=== PATIENT | female | born 1960 | race Caucasian/White ===

== ENCOUNTER 2019-04-08 15:36 | Outpatient (CLI) | payer BC ==
--- NOTE | 2019-04-21 15:47 | MMO ---
Bilateral MAMMO Bilat Screen [facility]. CLINICAL HISTORY: Patient is 58 years old and is seen for screening. The patient has the following family history of breast cancer: paternal grandmother and cousin female. The patient has no personal history of cancer. VIEWS: The views performed were: bilateral craniocaudal with tomosynthesis and bilateral mediolateral oblique with tomosynthesis. FILMS COMPARED: The present examination has been compared to prior imaging studies performed at [facility] on 11/19/2014, 01/24/2016 and 10/29/2017. This study has been interpreted with the assistance of computer-aided detection. MAMMOGRAM FINDINGS: There are scattered fibroglandular densities. There are no suspicious masses, suspicious calcifications, or new areas of architectural distortion. IMPRESSION: THERE IS NO MAMMOGRAPHIC EVIDENCE OF MALIGNANCY. A ROUTINE FOLLOW-UP MAMMOGRAM IN 1 YEAR IS RECOMMENDED. THE RESULTS OF THIS EXAM WERE SENT TO THE PATIENT. ACR BI-RADS Category 1 - Negative MAMMOGRAPHY NOTE: 1. A negative mammogram report should not delay a biopsy if a dominant of clinically suspicious mass is present. 2. Approximately 10% to 15% of breast cancers are not detected by mammography. 3. Adenosis and dense breasts may obscure an underlying neoplasm. Reported by: SANDY RAYA MD Electonically Signed: [id number]
== END 2019-04-08 15:37 | disposition home or self-care (01) ==
LOC: BICMAMMO 15:36
PROVIDERS: ATTEND Physician Assistant
DX: Z12.31 Encounter for screening mammogram for malignant neoplasm of breast (principal); Z80.3 Family history of malignant neoplasm of breast
CPT/HCPCS: 77063; 77067

== ENCOUNTER 2020-03-27 14:00 | Emergency (ER) | payer BC ==
[~2020-03-27 14:00] MED LIST: Iopamidol-370 76% 500 ML 1 ML ONE
[2020-03-27] MEDS ORDERED: Ketorolac Tromethamine 30 MG/ML VIAL ONE (14:19)
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
[2020-03-27] MEDS ORDERED: Acetaminophen 500 MG TAB ONE ×2 (15:08→15:10)
[2020-03-27] MEDS ORDERED: Morphine 4 MG/ML VIAL ONE (15:40)
[2020-03-27] MEDS ORDERED: Ondansetron PF 4 MG/2 ML Vial ONE ×2 (15:41→17:31)
[2020-03-27 16:02] LABS: #Basophils 0.1 thou/uL (0.0-0.2); #Eosinphils 0.3 thou/uL (0.0-0.7); #Lymphocytes 3.2 thou/uL (1.20-3.40); #Neutrophils 6.4 thou/uL (1.40-6.50); %Basophils 0.8 % (0.0-1.0); %Eosinophils 2.4 % (0.0-10.0); %Lymphocytes 29.6 % (21.0-51.0); %Monocytes 8.9 % (0.0-10.0); %Neutrophils 58.3 % (42.0-75.0); Mean Corpuscular HGB CONC 32.7 g/dL (32.0-36.0); Mean Corpuscular Hemoglobin 31.9 pg (27.0-31.0); Mean Corpuscular Volume 97.5 fL (78.0-98.0); Mean Platelet Volume 7.6 fL (7.4-10.4); Platelet Count 322 thou/uL (130-400); RBC Distribution Width 12.7 % (11.5-14.5); Red Blood Cell (RBC) Count 4.08 mill/uL (4.20-5.40); White Blood Cell (WBC) Count 10.9 thou/uL (4.8-10.8)
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
[2020-03-27 16:21] LABS: ALT (SGPT) 19 U/L (8-55); AST (SGOT) 21 U/L (5-34); Albumin 3.9 g/dL (3.5-5.0); Alkaline Phosphatase 73 U/L (40-110); Anion Gap 15 mmol/L (10-20); BUN (Urea Nitrogen) 9 mg/dL (9.8-20.1); Bilirubin, Total 0.3 mg/dL (0.2-1.2); Calc. Creatinine Clearance 0 mL/min (70-130); Calcium 9.1 mg/dL (7.8-10.44); Carbon Dioxide 24 mmol/L (22-29); Chloride 104 mmol/L (98-107); Globulin 3.3 g/dL (2.4-3.5); Glucose 94 mg/dL (70-105); Potassium 4.2 mmol/L (3.5-5.1); Protein, Total 7.2 g/dL (6.0-8.3); Sodium 139 mmol/L (136-145)
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
[2020-03-27] MEDS ORDERED: Fentanyl 100 MCG/2 ML VIAL ONE (17:31)
== END 2020-03-27 18:43 | disposition home or self-care (01) ==
LOC: ERS 14:00
DX: S20.211A Contusion of right front wall of thorax, initial encounter (principal); I10 Essential (primary) hypertension; F17.210 Nicotine dependence, cigarettes, uncomplicated; Z79.899 Other long term (current) drug therapy; V49.9XXA Car occupant (driver) (passenger) injured in unspecified traffic accident, initial encounter
CPT/HCPCS: 70450; 71046; 71260; 72125; 74177; 80053; 85025; 93005; 94760; 96372; 96374; 96375; 96376; J1885; J2270; J2405; J3010; Q9967

== ENCOUNTER 2020-08-02 11:22 | Outpatient (CLI) | payer BC | END 2020-08-02 11:23 | disposition home or self-care (01) | LOC: BICMAMMO 11:22 | PROVIDERS: ATTEND Physician Assistant | DX: Z12.31 Encounter for screening mammogram for malignant neoplasm of breast (principal); Z80.3 Family history of malignant neoplasm of breast | CPT/HCPCS: 77063; 77067 ==

== ENCOUNTER 2021-05-24 15:00 | Inpatient (IN) | payer BC ==
[2021-05-24 16:57] LABS: #Basophils 0.1 thou/uL (0.0-0.2); #Eosinphils 0.3 thou/uL (0.0-0.7); #Monocytes 0.9 thou/uL (0.11-0.59); %Basophils 0.7 % (0.0-1.0); %Eosinophils 3.2 % (0.0-10.0); %Neutrophils 68.1 % (42.0-75.0); Mean Corpuscular HGB CONC 31.7 g/dL (32.0-36.0); Mean Corpuscular Hemoglobin 33.2 pg (27.0-31.0); Mean Platelet Volume 6.9 fL (7.4-10.4); Platelet Count 334 thou/uL (130-400); RBC Distribution Width 12.3 % (11.5-14.5); Red Blood Cell (RBC) Count 3.93 mill/uL (4.20-5.40); White Blood Cell (WBC) Count 10.3 thou/uL (4.8-10.8)
[2021-05-24 17:16] LABS: Calcium 9.7 mg/dL (7.8-10.44); Chloride 105 mmol/L (98-107); Potassium 4.3 mmol/L (3.5-5.1); Sodium 140 mmol/L (136-145)
[2021-05-24 17:17] LABS: Globulin 3.1 g/dL (2.4-3.5); Glucose 118 mg/dL (70-105); Protein, Total 7.1 g/dL (6.0-8.3)
[2021-05-24 17:18] LABS: Anion Gap 15 mmol/L (10-20); Carbon Dioxide 24 mmol/L (22-29)
[2021-05-24 17:19] LABS: Bilirubin, Total 0.3 mg/dL (0.2-1.2)
[2021-05-24 17:20] LABS: Alkaline Phosphatase 92 U/L (40-110); Calc. Creatinine Clearance 0 mL/min (70-130)
[2021-05-24 17:21] LABS: BUN (Urea Nitrogen) 15 mg/dL (9.8-20.1)
[2021-05-24 17:22] LABS: AST (SGOT) 20 U/L (5-34)
[2021-05-24 17:23] LABS: ALT (SGPT) 20 U/L (8-55)
[2021-05-24] MEDS ORDERED: Nitroglycerin 2% Ointment 1 INCH/1 GM Packet ONE (17:38)
[2021-05-24] MEDS ORDERED: Senokot S 8.6-50 MG TAB PO PRN (19:33)
[2021-05-24] MEDS ORDERED: Ondansetron PF 4 MG/2 ML Vial IVP PRN (19:33)
[2021-05-24] MEDS ORDERED: Bisacodyl 5 MG TAB PO PRN (19:33)
[2021-05-24] MEDS ORDERED: hydrALAZINE 20 MG/ML VIAL SLOW IVP PRN (19:38)
[2021-05-24] MEDS ORDERED: Melatonin 3 MG TAB PO PRN (19:38)
[2021-05-24] MEDS ORDERED: Nitroglycerin 0.4 MG TAB (25 Tab Bottle) SL PRN (19:39)
[2021-05-24] MEDS ORDERED: Enoxaparin Sodium 40 MG/0.4 ML SYRINGE SC SCH (19:45)
[2021-05-24 20:40] LABS: Troponin I 0.319 ng/mL (< 0.028)
[2021-05-24] MEDS ORDERED: Communication Order-Pharmacy FS PRN (21:30)
[2021-05-24] MEDS ORDERED: Enoxaparin Sodium 80 MG/0.8 ML SYRINGE ONE ×2 (21:34→21:35)
[2021-05-24] MEDS ORDERED: Enoxaparin Sodium 30 MG/0.3 ML SYRINGE ONE (21:34)
[2021-05-24 22:50] VITALS: BMI 45.1
[2021-05-24] MEDS: Acetaminophen 325 MG TAB PO PRN (22:51)
[2021-05-24] MEDS: Carvedilol 3.125 MG TAB PO SCH (22:54)
[2021-05-24] MEDS: Atorvastatin Calcium 40 MG TAB PO SCH (22:54)
[2021-05-24 23:24] LABS: Troponin I 1.408 ng/mL (< 0.028)
[2021-05-25] MEDS: Carvedilol 3.125 MG TAB PO SCH ×3 (00:46→17:45)
[2021-05-25] MEDS: Acetaminophen 325 MG TAB PO PRN (03:18)
[2021-05-25 05:10] LABS: #Basophils 0.1 thou/uL (0.0-0.2); #Eosinphils 0.3 thou/uL (0.0-0.7); #Lymphocytes 2.8 thou/uL (1.20-3.40); #Neutrophils 6.3 thou/uL (1.40-6.50); %Basophils 0.6 % (0.0-1.0); %Eosinophils 2.9 % (0.0-10.0); %Monocytes 9.3 % (0.0-10.0); %Neutrophils 60.1 % (42.0-75.0); Hemoglobin 11.5 g/dL (12.0-16.0); Mean Corpuscular HGB CONC 32.2 g/dL (32.0-36.0); Mean Corpuscular Hemoglobin 33.5 pg (27.0-31.0); Mean Platelet Volume 7.1 fL (7.4-10.4); Platelet Count 296 thou/uL (130-400); RBC Distribution Width 12.3 % (11.5-14.5); Red Blood Cell (RBC) Count 3.43 mill/uL (4.20-5.40); White Blood Cell (WBC) Count 10.5 thou/uL (4.8-10.8)
[2021-05-25 05:34] LABS: ALT (SGPT) 18 U/L (8-55); AST (SGOT) 32 U/L (5-34); Albumin 3.5 g/dL (3.5-5.0); Alkaline Phosphatase 74 U/L (40-110); Anion Gap 11 mmol/L (10-20); BUN (Urea Nitrogen) 18 mg/dL (9.8-20.1); Bilirubin, Total 0.3 mg/dL (0.2-1.2); Calc. Creatinine Clearance 120 mL/min (70-130); Carbon Dioxide 27 mmol/L (22-29); Cardiac Risk 2.5 (Less than 4.5); Chloride 103 mmol/L (98-107); Cholesterol 142 mg/dl (< 200 Desired); Globulin 2.8 g/dL (2.4-3.5); Glucose 116 mg/dL (70-105); HDL Cholesterol 57 mg/dL (>60 Neg Risk); LDL Cholesterol, Calculated 68 mg/dL; Potassium 3.9 mmol/L (3.5-5.1); Protein, Total 6.3 g/dL (6.0-8.3); Sodium 137 mmol/L (136-145); Triglycerides 86 mg/dL (Less than 150)
[2021-05-25] MEDS ORDERED: Enoxaparin Sodium 40 MG/0.4 ML SYRINGE SC SCH (09:00)
[2021-05-25] MEDS ORDERED: Enoxaparin Sodium 120 MG/0.8 ML SYRINGE SC SCH (09:00)
[2021-05-25] MEDS: Clopidogrel Bisulfate 75 MG TAB PO SCH (09:25)
[2021-05-25] MEDS: Aspirin 81 mg Enteric Coated Tablet PO SCH (09:25)
[2021-05-25] MEDS: Lisinopril 2.5 MG TAB PO SCH (09:25)
[2021-05-25] MEDS: Lansoprazole 3 MG/ML ORAL SUSPENSION PO SCH (09:26)
[2021-05-25] MEDS ORDERED: Communication Order-Pharmacy FS SCH (10:45)
[2021-05-25 14:33] LABS: SARS-CoV-2 PCR by NAA Not Detected (NotDetected)
[2021-05-25] MEDS: Atorvastatin Calcium 40 MG TAB PO SCH (20:48)
[2021-05-26 05:15] LABS: #Basophils 0.1 thou/uL (0.0-0.2); #Eosinphils 0.2 thou/uL (0.0-0.7); #Lymphocytes 2.9 thou/uL (1.20-3.40); #Monocytes 0.9 thou/uL (0.11-0.59); #Neutrophils 4.6 thou/uL (1.40-6.50); %Basophils 1.1 % (0.0-1.0); %Eosinophils 2.7 % (0.0-10.0); %Lymphocytes 33.1 % (21.0-51.0); %Monocytes 10.1 % (0.0-10.0); Hemoglobin 11.9 g/dL (12.0-16.0); Mean Corpuscular HGB CONC 32.5 g/dL (32.0-36.0); Mean Corpuscular Hemoglobin 33.8 pg (27.0-31.0); Mean Platelet Volume 6.8 fL (7.4-10.4); Platelet Count 287 thou/uL (130-400); RBC Distribution Width 12.3 % (11.5-14.5); Red Blood Cell (RBC) Count 3.54 mill/uL (4.20-5.40); White Blood Cell (WBC) Count 8.6 thou/uL (4.8-10.8)
[2021-05-26 05:42] LABS: Anion Gap 12 mmol/L (10-20); BUN (Urea Nitrogen) 13 mg/dL (9.8-20.1); Calc. Creatinine Clearance 150 mL/min (70-130); Calcium 9.3 mg/dL (7.8-10.44); Carbon Dioxide 25 mmol/L (22-29); Chloride 105 mmol/L (98-107); Glucose 96 mg/dL (70-105); Potassium 4.3 mmol/L (3.5-5.1); Sodium 138 mmol/L (136-145)
[2021-05-26] MEDS: Lisinopril 2.5 MG TAB PO SCH (05:57)
[2021-05-26] MEDS: Carvedilol 3.125 MG TAB PO SCH ×2 (05:57→17:17)
[2021-05-26] MEDS: Aspirin 81 mg Enteric Coated Tablet PO SCH (05:57)
[2021-05-26] MEDS: Clopidogrel Bisulfate 75 MG TAB PO SCH (05:57)
[2021-05-26] MEDS ORDERED: Sodium Chloride 0.9% 1,000 ML IV SCH ×2 (06:00→10:06)
[2021-05-26] MEDS: Lansoprazole 3 MG/ML ORAL SUSPENSION PO SCH (06:00)
[2021-05-26] MEDS ORDERED: Heparin 10,000 UNITS/ 10 ML VIAL ONE (08:46)
[2021-05-26] MEDS ORDERED: Lidocaine 1% (PF) 30 ML VIAL ONE (08:46)
[2021-05-26] MEDS ORDERED: Midazolam HCl 2 mg/2 ml Vial ONE (08:47)
[2021-05-26] MEDS ORDERED: Fentanyl 100 MCG/2 ML VIAL ONE (08:50)
[2021-05-26] MEDS ORDERED: Protamine Sulfate 50 MG/5 ML VIAL ONE (09:50)
[2021-05-26] MEDS ORDERED: Nitroglycerin 0.4 MG TAB (25 Tab Bottle) SL PRN (10:04)
[2021-05-26] MEDS ORDERED: Acetaminophen/Codeine 30-300mg Tablet PO PRN ×2 (10:04)
[2021-05-26] MEDS ORDERED: Sodium Chloride 0.9% 200 ML IV PRN (10:04)
[2021-05-26] MEDS ORDERED: Iopamidol 370 76% 100 ML VIAL ONE (10:35)
[2021-05-26] MEDS ORDERED: Iopamidol 370 76% 50 ML VIAL FS ONE (10:35)
[2021-05-26 18:42] LABS: Troponin I 1.381 ng/mL (< 0.028)
[2021-05-26 21:02] LABS: Critical Call Chem Troponin I RESULT DECREASING; Troponin I 1.336 ng/mL (< 0.028)
[2021-05-26] MEDS: Atorvastatin Calcium 40 MG TAB PO SCH (21:07)
[2021-05-27 00:39] LABS: Troponin I 1.405 ng/mL (< 0.028)
[2021-05-27 04:15] LABS: #Eosinphils 0.2 thou/uL (0.0-0.7); #Lymphocytes 2.2 thou/uL (1.20-3.40); #Monocytes 0.8 thou/uL (0.11-0.59); #Neutrophils 5.1 thou/uL (1.40-6.50); %Basophils 0.3 % (0.0-1.0); %Eosinophils 2.3 % (0.0-10.0); %Lymphocytes 26.4 % (21.0-51.0); %Monocytes 9.8 % (0.0-10.0); %Neutrophils 61.3 % (42.0-75.0); Hemoglobin 11.5 g/dL (12.0-16.0); Mean Corpuscular HGB CONC 32.8 g/dL (32.0-36.0); Mean Corpuscular Hemoglobin 34.7 pg (27.0-31.0); Mean Platelet Volume 7.7 fL (7.4-10.4); Platelet Count 142 thou/uL (130-400); RBC Distribution Width 12.5 % (11.5-14.5); Red Blood Cell (RBC) Count 3.33 mill/uL (4.20-5.40); White Blood Cell (WBC) Count 8.4 thou/uL (4.8-10.8)
[2021-05-27 04:36] LABS: Anion Gap 12 mmol/L (10-20); BUN (Urea Nitrogen) 11 mg/dL (9.8-20.1); Calc. Creatinine Clearance 156 mL/min (70-130); Calcium 8.7 mg/dL (7.8-10.44); Carbon Dioxide 21 mmol/L (22-29); Chloride 107 mmol/L (98-107); Glucose 86 mg/dL (70-105); Potassium 4.3 mmol/L (3.5-5.1); Sodium 136 mmol/L (136-145)
[2021-05-27 04:47] LABS: Troponin I 1.228 ng/mL (< 0.028)
[2021-05-27] MEDS: Lisinopril 2.5 MG TAB PO SCH (08:27)
[2021-05-27] MEDS: Aspirin 81 mg Enteric Coated Tablet PO SCH (08:28)
[2021-05-27] MEDS: Carvedilol 3.125 MG TAB PO SCH (08:28)
[2021-05-27] MEDS: Clopidogrel Bisulfate 75 MG TAB PO SCH (08:28)
[2021-05-27] MEDS: Lansoprazole 3 MG/ML ORAL SUSPENSION PO SCH (08:29)
[2021-05-27 08:30] VITALS: BP 111/55
[2021-05-27 08:55] VITALS: TEMP 98.2
== END 2021-05-27 11:15 | disposition home or self-care (01) | DRG 281 ==
LOC: ERS 15:00 → ERHOLD 17:58 → 2SW 22:24 → OBSVTOIN 05-25 14:51
PROVIDERS: ADMIT Internal Medicine; ATTEND Internal Medicine
PROC: 4A023N7 Measurement of Cardiac Sampling and Pressure, Left Heart, Percutaneous Approach (ICD-10-PCS; principal; 2021-05-26)
PROC: B2111ZZ Fluoroscopy of Multiple Coronary Arteries using Low Osmolar Contrast (ICD-10-PCS; 2021-05-26)
PROC: B2151ZZ Fluoroscopy of Left Heart using Low Osmolar Contrast (ICD-10-PCS; 2021-05-26)
DX: I21.4 Non-ST elevation (NSTEMI) myocardial infarction (principal); I51.81 Takotsubo syndrome; Z68.41 Body mass index [BMI] 40.0-44.9, adult; I10 Essential (primary) hypertension; E78.5 Hyperlipidemia, unspecified; F17.210 Nicotine dependence, cigarettes, uncomplicated; R20.0 Anesthesia of skin; E66.9 Obesity, unspecified; I25.10 Atherosclerotic heart disease of native coronary artery without angina pectoris; E78.00 Pure hypercholesterolemia, unspecified; Z20.822 Contact with and (suspected) exposure to COVID-19; Z79.82 Long term (current) use of aspirin; Z79.899 Other long term (current) drug therapy; Z90.49 Acquired absence of other specified parts of digestive tract; Z90.710 Acquired absence of both cervix and uterus
CPT/HCPCS: 36415; 71046; 80048; 80053; 80061; 84484; 85025; 85347; 93005; 93010; 93458; 93880; 94760; 96372; 97139; 99152; 99153; G0378; J1644; J1650; J2001; J2250; J2720; J3010; J7050; Q9967; U0003; U0005